=== PATIENT | male | born 1995 | race Hispanic/Latino ===

== ENCOUNTER 2021-05-08 19:30 | Emergency (ER) | payer OTHER, SELFPAY ==
--- NOTE | 2021-05-08 20:55 | ER ---
Nurse's Notes [facility] Name: Scott Laboy Age: 25 yrs Sex: Male : 1995 Arrival Date: 05/08/2021 Time: 19:35 Bed 15 Private MD: Diagnosis: Presentation: 05/08 19:39 Chief complaint: Patient states: About 15 minutes ago ate 'a black chip' and was doing vg1 a 'hot chip challenge'. States vomited [employer] and is feeling a little bit better but states Epigastric pain and stated 'I think I threw up blood'. Pt also states 'feeling lightheaded'. Coronavirus screen: Vaccine status: Patient reports being unvaccinated. At this time, the client does not indicate any symptoms associated with coronavirus-19. Ebola Screen: Patient negative for fever greater than or equal to 101.5 degrees Fahrenheit, and additional compatible Ebola Virus Disease symptoms. Initial Sepsis Screen: Does the patient meet any 2 criteria? No. Patient's initial sepsis screen is negative. Does the patient have a suspected source of infection? No. Patient's initial sepsis screen is negative. Risk Assessment: Do you want to hurt yourself or someone else? Patient reports no desire to harm self or others. Onset of symptoms was May 08, 2021. 19:39 Method Of Arrival: Ambulatory vg1 19:39 Acuity: CELINA 3 vg1 Triage Assessment: 19:42 General: Appears in no apparent distress. uncomfortable, Behavior is calm, cooperative. vg1 Pain: Complains of pain in epigastric area. GI: Abdomen is round obese. Historical: - Allergies: 19:42 No Known Allergies; vg1 - Home Meds: 19:42 None [Active]; vg1 - PMHx: 19:42 None; vg1 - PSHx: 19:42 None; vg1 - Immunization history:: Adult Immunizations up to date, Client reports having NOT received the Covid vaccine. - Social history:: Smoking status: Patient reports the use of cigarette tobacco products, smokes one-half pack cigarettes per day, Reported history of juuling and/or vaping. Vital Signs: 19:39 BP 157 / 105; Pulse 85; Resp 16; Temp 97.3; Pulse Ox 98% ; Weight 126.55 kg; Height 6 vg1 ft. 0 in. (182.88 cm); Pain 0/10; 19:39 Body Mass Index 37.84 (126.55 kg, 182.88 cm) vg1 ED Course: 19:35 Patient arrived in ED. 19:42 Triage completed. vg1 19:42 Arm band placed on. vg1 20:23 Arnold Eduardo PA is PHCP. cp 20:23 Bebeto Eddy MD is Attending Physician. cp Administered Medications: No medications were administered Outcome: 20:54 Patient left the ED. df1 Signatures: Arnold Eduardo PA PA Rebecca Lyles, RN RN vg1 Brigitte Bustamante Asha Hernandez df1
[2021-05-08 20:59] VITALS: BP 157/105; TEMP 97.3; O2SAT 98
== END 2021-05-08 20:54 | disposition left against medical advice (07) ==
LOC: ER 19:30
DX: R10.13 Epigastric pain (principal); Z53.21 Procedure and treatment not carried out due to patient leaving prior to being seen by health care provider
CPT/HCPCS: 99281

== ENCOUNTER 2021-12-16 07:50 | Emergency (ER) | payer SELFPAY ==
[2021-12-16] MEDS ORDERED: IBUPROFEN 200 MG TAB PO ONE (08:15)
--- NOTE | 2021-12-16 09:28 | EDPHYS ---
Physician Documentation [facility] Name: Scott Laboy Age: 26 yrs Sex: Male : 1995 Arrival Date: 12/16/2021 Time: 07:51 Bed Waiting Private MD: ED Physician Jaya Caceres HPI: 12/16 09:31 This 26 yrs old Male presents to ER via Ambulatory with complaints of Nose ms3 Bleed, Headache. 09:31 The patient presents with a nose bleed, that is apparently anterior, from the right ms3 nare, occurred from an unknown cause. Historical: - Allergies: 08:01 No Known Allergies; ap3 - Home Meds: 08:01 None [Active]; ap3 - PMHx: 08:01 None; ap3 - Immunization history:: Client reports having NOT received the Covid vaccine. - Social history:: Smoking status: Patient/guardian denies using tobacco, Stopped _ months ago 2 Patient uses alcohol, only on a social basis. ROS: 14:10 Constitutional: Negative for fever, and chills. Eyes: Negative for injury, pain, ms3 redness, and discharge. 14:10 Cardiovascular: Negative for chest pain, and palpitations. Respiratory: Negative for shortness of breath, cough, wheezing, and pleuritic chest pain, Abdomen/GI: Negative for abdominal pain, nausea, vomiting, diarrhea, and constipation, MS/Extremity: Negative for injury and deformity, Skin: Negative for injury, rash, and discoloration. 14:10 ENT: Positive for nose bleed. 14:10 All other systems are negative. Exam: 08:03 ECG was reviewed by the Attending Physician. ms3 14:10 Constitutional: This is a well developed, well nourished patient who is awake, alert, ms3 and in no acute distress. Head/Face: Normocephalic, atraumatic. 14:10 Cardiovascular: Regular rate and rhythm with a normal S1 and S2. No gallops, murmurs, or rubs. Normal PMI, no JVD. No pulse deficits. Respiratory: Lungs have equal breath sounds bilaterally, clear to auscultation and percussion. No rales, rhonchi or wheezes noted. No increased work of breathing, no retractions or nasal flaring. Abdomen/GI: Soft, non-tender, with normal bowel sounds. No distension or tympany. No guarding or rebound. No evidence of tenderness throughout. Skin: Warm, dry with normal turgor. Normal color with no rashes, no lesions, and no evidence of cellulitis. Psych: Awake, alert, with orientation to person, place and time. Behavior, mood, and affect are within normal limits. 14:10 ENT: Nose: clotted blood, in right nare. Vital Signs: 07:57 BP 157 / 108; Pulse 95; Resp 17; Temp 98.3; Pulse Ox 97% on R/A; Weight 127.01 kg; ap3 Height 5 ft. 9 in. (175.26 cm); 07:57 Body Mass Index 41.35 (127.01 kg, 175.26 cm) ap3 MDM: 08:03 Patient medically screened. ms3 14:08 Differential diagnosis: spontaneous epistaxis, HTN vs abnormal EKG. Data reviewed: ms3 vital signs, nurses notes, EKG. Data interpreted: Pulse oximetry:. Data interpreted: Pulse oximetry: on room air is 97 %. Interpretation: normal. Counseling: I had a detailed discussion with the patient and/or guardian regarding: the historical points, exam findings, and any diagnostic results supporting the discharge/admit diagnosis, the need for outpatient follow up, to return to the emergency department if symptoms worsen or persist or if there are any questions or concerns that arise at home. ED course: Discussed EKG, physical exam findings with patient. Patient to follow-up with primary care physician in 2-3 days. Patient understands and agrees with plan. All questions were answered. Return precautions discussed include worsening symptoms, or any other concerns. On reevaluation patient is alert and oriented x4, in no apparent distress, nontoxic-appearing, speaking full sentences, ambulatory in emergency department. . 12/16 08:02 Order name: EKG; Complete Time: 08:02 ms3 EC:03 Rate is 86 beats/min. Rhythm is regular. QRS [place] is Normal. Clinical impression: NSR ms3 w/ Non-specific ST/T Changes. Interpreted by me. Administered Medications: 08:11 Drug: Ibuprofen 600 mg Route: PO; ap3 09:21 Follow up: Response: No adverse reaction ap3 Disposition Summary: 12/16/21 09:28 Discharge Ordered Location: Home ms3 Condition: Stable ms3 Diagnosis - Headache ms3 - Essential (primary) hypertension ms3 - Epistaxis ms3 Followup: ms3 - With: Kwaku Gaines MD - When: 2 - 3 days - Reason: Recheck today's complaints Discharge Instructions: - Discharge Summary Sheet ms3 - Nosebleed, Adult ms3 - General Headache Without Cause ms3 - Hypertension, Adult ms3 - Form - Return To Work ms3 Forms: - Medication Reconciliation Form ms3 - Thank You Letter ms3 - Antibiotic Education ms3 - Prescription Opioid Use ms3 Signatures: Kaur Blank, RN RN ap3 Jaya Caceres, DO ms3
--- NOTE | 2021-12-16 09:28 | ER ---
Nurse's Notes [facility] Name: Scott Laboy Age: 26 yrs Sex: Male : 1995 Arrival Date: 12/16/2021 Time: 07:51 Bed Waiting Private MD: Diagnosis: Headache;Essential (primary) hypertension;Epistaxis Presentation: 12/16 07:57 Chief complaint: Patient states: he started having a nose bleed from his right nare. ap3 Patient states his nose bled for approx 10 minutes, but then stopped. Patient also reports nausea. Coronavirus screen: At this time, the client does not indicate any symptoms associated with coronavirus-19. Ebola Screen: No symptoms or risks identified at this time. Initial Sepsis Screen: Does the patient meet any 2 criteria? No. Patient's initial sepsis screen is negative. Does the patient have a suspected source of infection? No. Patient's initial sepsis screen is negative. Risk Assessment: Do you want to hurt yourself or someone else? Patient reports no desire to harm self or others. Onset of symptoms was December 16, 2021. 07:57 Method Of Arrival: Ambulatory ap3 07:57 Acuity: CELINA 4 ap3 Triage Assessment: 08:00 Headache History: Denies prior headaches. General: Appears in no apparent distress. ap3 Behavior is calm, cooperative. Pain: Complains of pain in head Pain currently is 8 out of 10 on a pain scale. Pain began 1 hour ago. Also complains of nausea, nose bleed. EENT: Nares dry blood noted in right nare. Neuro: Level of Consciousness is awake, alert, obeys commands, Oriented to person, place, time, situation, Appropriate for age Speech is normal. Cardiovascular: Patient's skin is warm and dry. Respiratory: Airway is patent Respiratory effort is even, unlabored, Respiratory pattern is regular, symmetrical. Historical: - Allergies: 08:01 No Known Allergies; ap3 - Home Meds: 08:01 None [Active]; ap3 - PMHx: 08:01 None; ap3 - Immunization history:: Client reports having NOT received the Covid vaccine. - Social history:: Smoking status: Patient/guardian denies using tobacco, Stopped _ months ago 2 Patient uses alcohol, only on a social basis. Screenin:00 Abuse screen: Denies threats or abuse. Nutritional screening: No deficits noted. ap3 Tuberculosis screening: No symptoms or risk factors identified. Fall Risk None identified. Vital Signs: 07:57 BP 157 / 108; Pulse 95; Resp 17; Temp 98.3; Pulse Ox 97% on R/A; Weight 127.01 kg; ap3 Height 5 ft. 9 in. (175.26 cm); 07:57 Body Mass Index 41.35 (127.01 kg, 175.26 cm) ap3 ED Course: 07:51 Patient arrived in ED. am2 07:53 Jaya Caceres DO is Attending Physician. ms3 08:00 Triage completed. ap3 08:00 Arm band placed on right wrist. ap3 08:02 Patient has correct armband on for positive identification. Pulse ox on. NIBP on. ap3 08:11 EKG done, by ED staff, reviewed by aJya Caceres DO. ap3 09:26 Kwaku Gaines MD is Referral Physician. ms3 09:34 No provider procedures requiring assistance completed. Patient did not have IV access ap3 during this emergency room visit. Administered Medications: 08:11 Drug: Ibuprofen 600 mg Route: PO; ap3 09:21 Follow up: Response: No adverse reaction ap3 Medication: 08:02 VIS not applicable for this client. ap3 Outcome: 09:28 Discharge ordered by . ms3 09:34 Discharged to home ambulatory, with friend. ap3 09:34 Condition: good 09:34 Discharge instructions given to patient, Instructed on discharge instructions, follow up and referral plans. Demonstrated understanding of instructions, follow-up care. 09:35 Patient left the ED. ap3 Signatures: Kaur Reyes Amanda, RN RN ap3 Jaya Caceres DO DO ms3
[2021-12-16 09:41] VITALS: BP 157/108; TEMP 98.3; O2SAT 97
--- NOTE | 2021-12-17 07:40 | EKG ---
Test Date: 2021-12-16 Test Time: 08:03:53 R D Engineer: ALP MEASUREMENT RESULTS: Intervals: Rate: 86 TN: 134 QRSD: 96 QT: 396 QTc: 473 [place]: P: 1 TN: 134 QRS: 16 T: 1 INTERPRETIVE STATEMENTS: Normal sinus rhythm Nonspecific T wave abnormality Prolonged QT Abnormal ECG Compared to ECG 09/13/2012 14:51:26 T-wave abnormality now present Prolonged QT interval now present Electronically Signed On 12-17-21 07:37:21 CDT by Malachi Navarrete
== END 2021-12-16 09:35 | disposition home or self-care (01) ==
LOC: ER 07:50
DX: R04.0 Epistaxis (principal); R51.9 Headache, unspecified; I10 Essential (primary) hypertension
CPT/HCPCS: 93005; 99283